=== PATIENT | female | born 1965 | race Caucasian/White ===

== ENCOUNTER 2019-06-26 01:48 | Inpatient (IN) | payer MEDICARE, MEDICAID ==
[~2019-06-26] VITALS: Ht 162.6 cm; Wt 76.8 kg
--- NOTE | 2019-06-26 02:10 | NUR ---
PT C/O SHARP CHEST PAIN FOR THE LAST DAY AND A HALF WELL A DRY COUGH AND SORE THROAT. PT A&OX4, STEADY GAIT. CALL LIGHT WITHIN REACH
[2019-06-26] MEDS ORDERED: ASPIRIN 81 MG TABLET CHEW ONE ×2 (02:21→03:21)
[2019-06-26] MEDS ORDERED: ONDANSETRON 2MG/ML, 2ML IVPush ONE (02:30)
[2019-06-26] MEDS ORDERED: MORPHINE SULFATE 4 MG/ML, 1ML IVPush PRN (02:30)
[2019-06-26] MEDS ORDERED: SODIUM CHLORIDE FLUSH 10ML SYR IVF ONE (02:30)
[2019-06-26] MEDS ORDERED: ASPIRIN 81 MG TABLET CHEW PO ONE ×2 (02:30→03:30)
[2019-06-26 02:37] LABS: BASOPHILS # (AUTO) 0.04 x10^3/uL (0-0.1); BASOPHILS % (AUTO) 0 % (0-1); EOSINOPHILS # (AUTO) 0.27 x10^3/uL (0-0.4); EOSINOPHILS % (AUTO) 3 % (1-7); LYMPHOCYTES # (AUTO) 3.48 x10^3/uL (1-3.4); LYMPHOCYTES % (AUTO) 34 % (22-44); MD NO; MEAN CORPUSCULAR VOLUME 96.9 fL (80-100); MEAN PLATELET VOLUME 6.8 fL (7.4-10.4); MONOCYTES # (AUTO) 0.69 x10^3/uL (0.2-0.8); MONOCYTES % (AUTO) 7 % (2-9); NEUTROPHILS # (AUTO) 5.82 x10^3/uL (1.8-6.8); NEUTROPHILS % (AUTO) 57 % (42-75); PLATELET COUNT 355 x10^3/uL (130-400); RED BLOOD COUNT 5.04 x10^6/uL (3.82-5.3); RED CELL DISTRIBUTION WIDTH 13.1 % (9.6-15.2)
[2019-06-26 02:49] LABS: ALANINE AMINOTRANSFERASE 20 U/L (12-78); ALBUMIN 4.2 g/dL (3.4-5.0); ANION GAP 7 mmol/L (5-15); CALCIUM 8.8 mg/dL (8.5-10.1); CHLORIDE 107 mmol/L (98-107); CREATININE 0.79 mg/dL (0.55-1.02)
[2019-06-26 02:53] LABS: ALKALINE PHOSPHATASE 102 U/L (45-117); BILIRUBIN,TOTAL 0.4 mg/dL (0.2-1.0); TOTAL PROTEIN 7.6 g/dL (6.4-8.2)
[2019-06-26] MEDS ORDERED: MORPHINE SULFATE 4 MG/ML, 1ML ONE (02:55)
[2019-06-26] MEDS ORDERED: ONDANSETRON 2MG/ML, 2ML ONE (02:55)
[2019-06-26] MEDS ORDERED: MAALOX/HYOSCYAMINE/LIDOCAINE 45 ML BTL ONE (02:55)
[2019-06-26 02:56] LABS: TROPONIN I 0.139 ng/mL (0.000-0.045)
[2019-06-26] MEDS ORDERED: MAALOX/HYOSCYAMINE/LIDOCAINE 45 ML BTL PO ONE (03:00)
--- NOTE | 2019-06-26 03:30 | NUR ---
ADMITTING MD AT BEDSIDE TO ASSESS PT.
[2019-06-26] MEDS ORDERED: NS + 20MEQ KCL 1,000 ML IV SCH (03:33)
[2019-06-26] MEDS ORDERED: POTASSIUM CHLORIDE 20 MEQ TAB.ER.PRT ONE (03:58)
[2019-06-26] MEDS ORDERED: HEPARIN 25,000 UNITS/500ML PMX 500 ML ONE (03:58)
[2019-06-26] MEDS ORDERED: NS + 20MEQ KCL 1,000 ML IV ONE (03:59)
[2019-06-26] MEDS ORDERED: morphine SULFATE 10 MG/ML, 1ML IVPush PRN (04:00)
[2019-06-26] MEDS ORDERED: LISINOPRIL 5 MG TABLET PO SCH (04:00)
[2019-06-26] MEDS ORDERED: ATORVASTATIN 80 MG TABLET PO SCH (04:00)
[2019-06-26] MEDS ORDERED: NITROGLYCERIN 0.4 MG BOTTLE (25 TABS) SL PRN (04:00)
[2019-06-26] MEDS ORDERED: POTASSIUM CHLORIDE 20 MEQ TAB.ER.PRT PO ONE (04:00)
[2019-06-26] MEDS ORDERED: hydrALAzine 20 MG/ML, 1ML IVPush PRN (04:00)
[2019-06-26] MEDS ORDERED: HEPARIN 5,000 UNITS/ML, 1ML ONE (04:01)
[2019-06-26 04:11] LABS: TROPONIN I 0.166 ng/mL (0.000-0.045)
[2019-06-26] MEDS ORDERED: HEPARIN 25,000 UNITS/500ML PMX 500 ML IV PRN (04:30)
[2019-06-26] MEDS ORDERED: HEPARIN 5,000 UNITS/ML, 1ML IV ONE (04:30)
[2019-06-26] MEDS ORDERED: HEPARIN 5,000 UNITS/ML, 1ML IV PRN (04:30)
[2019-06-26 05:10] VITALS: BP 143/81
[2019-06-26] MEDS ORDERED: ASPIRIN 325 MG TABLET EC PO SCH (06:00)
[2019-06-26] MEDS ORDERED: METOPROLOL TARTRATE 25 MG TABLET PO SCH (07:30)
[2019-06-26 09:30] VITALS: BP 136/80
[2019-06-26] MEDS ORDERED: METO25TA35 PO (10:29)
[2019-06-26] MEDS ORDERED: ATOR-2 PO (10:29)
[2019-06-26] MEDS ORDERED: ASPI-650 PO (10:29)
[2019-06-26] MEDS ORDERED: LISI5TAB7 PO (10:29)
== END 2019-06-26 08:52 | disposition left against medical advice (07) | DRG 281 ==
LOC: ED 03:00 → EDIP 03:33 → 5SO 04:35
PROVIDERS: ADMIT Family Medicine; ATTEND Family Medicine
DX: I21.4 Non-ST elevation (NSTEMI) myocardial infarction (principal); I16.1 Hypertensive emergency; F17.210 Nicotine dependence, cigarettes, uncomplicated; I10 Essential (primary) hypertension; E87.6 Hypokalemia; Z53.21 Procedure and treatment not carried out due to patient leaving prior to being seen by health care provider; Z79.899 Other long term (current) drug therapy; Z71.6 Tobacco abuse counseling; I11.9 Hypertensive heart disease without heart failure
CPT/HCPCS: 36415; 71046; 80053; 84484; 85025; 85520; 93005; 96374; 96375; G0378; J1644; J2405; J3480; J2270

== ENCOUNTER 2020-02-14 20:08 | Emergency (ER) | payer MEDICAID, MEDICARE ==
[~2020-02-14] VITALS: Ht 162.6 cm; Wt 64.4 kg
[~2020-02-14 20:08] MED LIST: ASPI-650 PO; ATOR-2 PO; LISI5TAB7 PO; METO25TA35 PO
[2020-02-14 20:10] VITALS: BP 174/104
--- NOTE | 2020-02-14 20:30 | NUR ---
PATIENT TO ROOM FROM LOBBY
--- NOTE | 2020-02-14 20:49 | NUR ---
THIS IS A 54 YO FEMALE COMING IN FOR WEAKNESS IN LEGS AND ARMS X "YEARS ON AND OFF" AND "TIGHTNESS IN MY CHEST. WHEN I WAS HERE LAST THEY SAID I CAN COME BACK TO GET MY HEART LOOKED AT, I DIDN'T WANT TO DO IT LAST TIME". PATIENT C/O CHEST TIGHTNESS TO THE STERNUM, NOT TENDER TO PALPATION, NO PAIN AT THIS TIME. DENIES LIGHTHEADED OR SOB. SPEAKING IN FULL SENTENCES, DENIES ANY MEDICAL HX, A&OX4, VSS, ALL MONITORING IN PLACE, SINUS TACHYCARDIA ON MONITOR AT 106. CALL LIGHT IN REACH. FABRICIO SHEN IN ROOM
[2020-02-14 21:13] LABS: BASOPHILS # (AUTO) 0.03 x10^3/uL (0-0.1); BASOPHILS % (AUTO) 0 % (0-1); EOSINOPHILS # (AUTO) 0.07 x10^3/uL (0-0.4); EOSINOPHILS % (AUTO) 1 % (1-7); LYMPHOCYTES # (AUTO) 1.48 x10^3/uL (1-3.4); LYMPHOCYTES % (AUTO) 15 % (22-44); MD NO; MEAN CORPUSCULAR HEMOGLOBIN 33.5 pg (27.0-34.8); MEAN CORPUSCULAR HGB CONC 34.1 g/dL (32.4-35.8); MEAN CORPUSCULAR VOLUME 98.2 fL (80-100); MEAN PLATELET VOLUME 6.8 fL (7.4-10.4); MONOCYTES # (AUTO) 0.85 x10^3/uL (0.2-0.8); MONOCYTES % (AUTO) 8 % (2-9); NEUTROPHILS # (AUTO) 7.78 x10^3/uL (1.8-6.8); NEUTROPHILS % (AUTO) 76 % (42-75); PLATELET COUNT 350 x10^3/uL (130-400); RED BLOOD COUNT 4.99 x10^6/uL (3.82-5.3); RED CELL DISTRIBUTION WIDTH 15.5 % (9.6-15.2)
[2020-02-14 21:24] LABS: ALBUMIN 3.6 g/dL (3.4-5.0); ANION GAP 7 mmol/L (5-15); CALCIUM 9.1 mg/dL (8.5-10.1); CHLORIDE 107 mmol/L (98-107); CREATININE 0.64 mg/dL (0.55-1.02)
[2020-02-14 21:28] LABS: TROPONIN I < 0.015 ng/mL (0.000-0.045)
--- NOTE | 2020-02-14 21:51 | NUR ---
Patient/Caregiver given discharge instructions and they have confirmed that they understand the instructions. Patient ambulatory with steady gait.
== END 2020-02-14 22:00 | disposition home or self-care (01) ==
LOC: ED 21:44
DX: M79.662 Pain in left lower leg (principal); R53.1 Weakness; F10.10 Alcohol abuse, uncomplicated; F17.210 Nicotine dependence, cigarettes, uncomplicated; R07.89 Other chest pain; I25.2 Old myocardial infarction; Z72.89 Other problems related to lifestyle; Y90.0 Blood alcohol level of less than 20 mg/100 ml
CPT/HCPCS: 36415; 71046; 80048; 82040; 84484; 85025; 93005; 99285; 99406